=== PATIENT | male | born 1990 | race Caucasian/White ===

== ENCOUNTER → 2023-07-24 | Outpatient (CLI) | payer OTHER ==
[2023-07-24 15:41] VITALS: BP 138/86; PULSE 78; RESP 16; TEMP 98.6
--- NOTE | 2023-07-24 15:48 | P.SLEEP ---
History of Present Illness DATE: 07/24/2023 CONSULTATION/NEW PATIENT EVALUATION HISTORY OF PRESENT ILLNESS/SLEEP-WAKE EVALUATION: 32-year-old gentleman had be en evaluated in the sleep center for possible obstructive sleep apnea hypopnea syndrome. SLEEP SCHEDULE: Usually sleep schedule from 10 PM to 6:45 AM on weekdays and from 1011 PM to 78 AM on weekend. FALLING ASLEEP: Patient does have problems with falling asleep, has TV set in bedroom. DURING SLEEP: Patient has loud snoring, wakes up from sleep 3 times with dry mouth, restless leg symptoms. No history of hypnogogical hallucinations, sleep paralysis, or cataplexy. DURING THE DAY/WAKE STATE: In the morning patient wake up tired, falling asleep during the day. [place] sleepiness scale is 11. Patient take nap around 35 PM. PAST MEDICAL HISTORY: Tinnitus, wrist arthritis, eustachian tube dysfunction. PAST SURGICAL HISTORY: None. MEDICATIONS: None. SOCIAL HISTORY: Negative for smoking or using alcohol. FAMILY HISTORY: Arthritis. REVIEW OF SYSTEMS: Snoring, multiple awakenings from sleep, sleepiness during the day. No fevers. No double vision. No recent chest pain. No shortness of breath. No abdominal pain. No bleeding episodes. No blood in urine. No seizure episodes. PHYSICAL EXAMINATION: GENERAL: A pleasant patient without any distress. VITAL SIGNS: Please see below, BMI 24.2. HEENT: PERRLA, EOMI. Evaluation of oropharynx showed tongue protrudes midline, low position of soft palate Mallampati 3, short distance between soft palate and posterior pharyngeal wall. NECK: Supple. No JVD. Thyroid is not palpable. 15.5 inches in circumference. LUNGS: Clear to percussion and to auscultation. Good air exchange. No wheezing or rhonchi. HEART: S1, S2 regular. No murmurs, gallops or rubs. ABDOMEN: Soft and nontender. Bowel sounds are present. No organomegaly appreciated. EXTREMITIES: No clubbing or cyanosis. TARE WORKER: Awake, alert, and oriented x3. Cranial nerves 2 to 7 intact. There is no fasciculation or atrophy noted. No focal deficits observed. ASSESSMENT: 1. Loud snoring, multiple awakenings from sleep, small oropharyngeal airspace Mallampati 3, sleepiness during the day with [place] Sleepiness Scale increased to 11. Obstructive sleep apnea hypopnea syndrome. 2. History of tinnitus. 3. Wrist arthritis. 4. Eustachian tube dysfunction. PLAN: 1. Polysomnography for evaluation of patient's breathing during sleep. 2. Following plan after reading sleep study. 3. Preferable position during sleep on the side. 4. No driving if patient feels any sleepiness. Patient is aware of civil and criminal liability for unsafe driving. 5. Sleep hygiene with regular sleep time for at least 7.5-8 hours. Thank you very much for referring this patient for consultation. Sincerely, Rafael Faustin MD, PhD, FAASM. Diplomat of [place] [employer], Sleep Medicine Board by [place] [employer] [place] [employer] Assembler of [facility] [place] Past Medical History Past Medical History: No Reported History History of Any Multi-Drug Resistant Organisms: None Reported Past Surgical History: Orthopedic Surgery Past Anesthesia/Blood Transfusion Reactions: No Reported Reaction Past Psychological History: No Psychological Hx Reported Smoking Status: Never smoker Past Alcohol Use History: None Reported Past Drug Use History: None Reported Physical Exam Vitals: Vital Signs Temp Pulse Resp BP Pulse Ox 07/24/23 15:09 98.6 F 78 16 138/86 99 Intake and Output 07/24/23 07/24/23 07/24/23 06:59 14:59 22:59 Other: Weight 78.925 kg Sleep Note - Sleep Data ESS Total: 11 - Sleep Note Sleep Note: Temperature: 98.6 F Pulse Rate: 78 Respiratory Rate: 16 Blood Pressure: 138/86 SpO2: 99 Height: 5 ft 11 in Weight: 78.925 kg BMI: Neck Circumference: 15.5
== END ==
LOC: 3 N SLEEP 14:31
PROVIDERS: ATTEND Internal Medicine
DX: G47.33 Obstructive sleep apnea (adult) (pediatric) (principal); M19.039 Primary osteoarthritis, unspecified wrist; G47.10 Hypersomnia, unspecified; H69.80 Other specified disorders of Eustachian tube, unspecified ear; Z86.69 Personal history of other diseases of the nervous system and sense organs
CPT/HCPCS: 99202

== ENCOUNTER 2023-08-12 19:19 | Outpatient (CLI) | payer OTHER ==
--- NOTE | 2023-08-14 11:39 | P.PCN ---
Description of Procedure: POLYSOMNOGRAPHY REPORT PROCEDURE(S)/DATE(S): Polysomnography 08/12/2023 CLINICAL: Patient has been seen in the sleep center for evaluation of obstructive sleep apnea-hypopnea syndrome. Please see my consultation. Sleep study has been done for evaluation of patient breathing during the sleep. PROCEDURE: The standard montage for clinical polysomnography included the electroencephalogram, the electrooculogram, the mentalis surface electromyography and Lead II cardiography. The respiratory battery consisted of measurements of nasal/buccal air flow, pressure transducer measurements from nose, thoracic and/or abdominal effort and intercostal surface electromyography. Video monitoring has been done to check for any parasomnia events. Nocturnal oxyhemoglobin saturations were obtained by finger oximetry. Step-samaniego titration with positive airway pressure was utilized to control the respiratory events, if necessary. RESULTS: During the diagnostic sleep study sleep efficiency was normal 89.9%. Latency to sleep onset was normal 11.5 min. Sleep architecture showed stage NI was normal 6.6%, Delta sleep was absent 0%, REM sleep was normal 26.3%. Respiratory channel showed 0 obstructive apneas, 0 mixed apneas, 0 central apneas, 1 hypopneas with lowest oxygen level 91%. Total apnea hypopnea index was 0.2. Heart rate was in the range between 55 and 66, average 60. EMG showed 0 periodic limb movements. IMPRESSIONS: 1. No significant respiratory abnormalities have been documented during the sleep study, normal sleep architecture. 2. No significant periodic limb movements have been documented. Please see other impressions from consultation PLAN: 1. I will see patient for follow-up visit to explain results of the test and recommendations. 2. Sleep hygiene with regular time in bed for at least 7-1/2 hours. 3. No driving if feeling sleepiness. Thank you very much for allowing me to participate in the management of your patient. Sincerely, Rafael Faustin MD, PhD, FAASM. Diplomat of [place] [employer], Sleep Medicine Board by [place] [employer] Practitioner of [facility] [place]
== END 2023-08-13 05:22 ==
LOC: 3 N SLEEP 19:19
PROVIDERS: ATTEND Internal Medicine
DX: G47.33 Obstructive sleep apnea (adult) (pediatric) (principal)
CPT/HCPCS: 95810

== ENCOUNTER → 2023-10-02 | Outpatient (CLI) | payer OTHER ==
[2023-10-02 14:29] VITALS: BP 129/83; PULSE 94; RESP 16; TEMP 98.2
--- NOTE | 2023-10-02 14:58 | P.PROGSL ---
Subjective DATE: 10/02/2023 FOLLOW UP VISIT. Patient returned to sleep center for follow-up visit to discuss results of sleep study and following plan. I discussed results of sleep study with patient in details. No significant respiratory abnormalities have been documented. Normal oxygenation during the sleep. No periodic limb movements have been documented. Patient continued to feel sleepiness during the day. [place] Sleepiness Scale increased to 13. Sometimes feels sleepiness while driving the car. Sleep schedule sounds sufficient from around 10 PM to 7 AM MEDICATIONS: None During physical exam: GENERAL: A pleasant patient without any distress. VITAL SIGNS: Please see below. HEENT: PERRLA, EOMI. NECK: Supple. No JVD. LUNGS: Clear to percussion and to auscultation. Good air exchange. No wheezing or rhonchi. HEART: S1, S2 regular. ABDOMEN: Soft and nontender. EXTREMITIES: No clubbing or cyanosis. COMMERCIAL ASSISTANT: Awake, alert, and oriented x3. No focal deficit. Impressions: 1. Normal respiration and oxygenation by results of polysomnogram. 2. No periodic limb movements. 3. Patient continued to feel sleepiness during the day with increased [place] Sleepiness Scale and episodes of sleepiness while driving car. Sleep schedule sounds sufficient. Differential diagnosis include idiopathic hypersomnia and narcolepsy type II. 4. Tinnitus. 5. Wrist arthritis. 6. Eustachian tube dysfunction. Plan: 1. Multiple sleep latency test for objective fibrillation symptoms of excessive daytime sleepiness 2. Sleep hygiene with regular time in bed for at least 8 hours. 3. Precautions related to driving. No driving if feel any sleepiness. Patient is aware about civil and criminal liability for unsafe driving, promised to follow recommendations. 4. Following plan after reading MSLT. Thank you very much for allowing me to participate in the management of your patient. Rafael Faustin MD, PhD, FAASM. Diplomat of [place] [employer], Sleep Medicine Board by [place] [employer] Manager of [facility] [place] Objective - Vital Signs Vital Signs: Vital Signs Temp 98.2 F 10/02/23 14:28 Pulse 94 10/02/23 14:28 Resp 16 10/02/23 14:28 BP 129/83 10/02/23 14:28 Pulse Ox 98 10/02/23 14:28 FiO2 Intake & Output 10/01/23 10/02/23 10/02/23 18:59 06:59 18:59 Weight 78.471 kg
== END ==
LOC: 3 N SLEEP 13:49
PROVIDERS: ATTEND Internal Medicine
DX: H93.19 Tinnitus, unspecified ear (principal); H69.93 Unspecified Eustachian tube disorder, bilateral; M19.039 Primary osteoarthritis, unspecified wrist; R40.0 Somnolence
CPT/HCPCS: 99212